=== PATIENT | male | born 1955 | race Caucasian/White ===

== ENCOUNTER → 2016-12-19 | Outpatient (CLI) | payer BC ==
--- NOTE | 2016-12-20 00:01 | MR ---
EXAMINATION TYPE: MR foot RT wo con DATE OF EXAM: 12/19/2016 COMPARISON: NONE HISTORY: Rt foot pain, swelling x 5 months after having a ladder fall on it Standard multiplanar, multisequence MRI departmental protocol Multiplanar, multisequence images of the right foot were acquired. Diffusion weighted imaging was per formed. FINDINGS: There is patchy abnormal increased signal on the T2 images in the distal first metatarsal. I see no definite fracture line. There is minimal increased signal in the base of the proximal phalan x of the big toe. There is subtle increased signal at the head of the second and third metatarsals on the dorsal aspect consistent with minimal bone bruise. The bones of the midfoot and hindfoot appear intact. The plantar fascia appears normal. There is no pathologic fluid collection. IMPRESSION: Abnormal signal in the distal first metatarsal consistent with a bone bruise. No fracture line seen. There is evidence for minimal bone bruise in the base of the first proximal phalanx as well. Minimal bone bruise seen on the dorsal aspect of the second and third metatarsal heads.
== END | disposition home or self-care (01) ==
LOC: RADMRIMAIN 21:07
PROVIDERS: ATTEND Family Medicine
DX: S90.31XA Contusion of right foot, initial encounter (principal); R93.7 Abnormal findings on diagnostic imaging of other parts of musculoskeletal system

== ENCOUNTER 2018-01-09 09:41 | Day surgery (SDC) | payer BC ==
[2018-01-06 15:22] VITALS: BMI 24.3
[~2018-01-09 09:41] MED LIST: LACTATED RINGERS 1,000 ML IV SCH
[2018-01-09 10:20] VITALS: RESP 16; TEMP 98.2
[2018-01-09] MEDS ORDERED: LIDOCAINE 1% INJ 10MG/ML (20 ML MDV) ONE (10:39)
[2018-01-09] MEDS ORDERED: PROPOFOL 10 MG/ML 20 ML VIAL IV ONE (10:39)
--- NOTE | 2018-01-09 10:44 | P.GSHP ---
History of Present Illness H&P Date: 01/09/18 Chief Complaint: GI bleed this a 62-year-old male who's had episodes of GI bleed. He presents today for colonoscopy. Past Medical History Past Medical History: Hyperlipidemia Additional Past Medical History / Comment(s): HX HIATAL HERNIA- REPAIR 02/2014 History of Any Multi-Drug Resistant Organisms: None Reported Past Surgical History: Hernia Repair, Tonsillectomy Additional Past Surgical History / Comment(s): BUZZ FUNDOPLASTY 02/2014, COLONOSCOPY 2014. DEJUAN. ING. HERNIA WITH MESH 2013 Past Anesthesia/Blood Transfusion Reactions: No Reported Reaction Smoking Status: Former smoker - Past Family History Father Family Medical History: Cancer Medications and Allergies Home Medications Medication Instructions Recorded Confirmed Type Simvastatin [Zocor] 20 mg PO MOWEFR 10/13/14 01/09/18 History Allergies Allergy/AdvReac Type Severity Reaction Status Date / Time No Known Allergies Allergy Verified 01/06/18 15:08 Surgical - Exam Vital Signs Temp Pulse Resp BP Pulse Ox 98.2 F 70 16 131/80 98 01/09/18 10:10 01/09/18 10:10 01/09/18 10:10 01/09/18 10:10 01/09/18 10:10 - General well developed, no distress - Eyes PERRL - ENT normal pinna - Neck no masses - Respiratory normal expansion - Cardiovascular Rhythm: regular - Abdomen Abdomen: soft, non tender Assessment and Plan Assessment: bleed. We'll perform colonoscopy.
--- NOTE | 2018-01-09 11:04 | P.OP ---
Date of Procedure: 01/09/18 Preoperative Diagnosis: GI bleed Postoperative Diagnosis: internal hemorrhoids Rectal polyp Procedure(s) Performed: colonoscopy Anesthesia: MAC Surgeon: Lencho Smith Pathology: other (rectal polyp) Condition: stable Disposition: PACU Description of Procedure: patient's placed on the endoscopy table in the lateral position. He received IV sedation. Digital rectal exam was performed which revealed internal hemorrhoids. The flexible colonoscope was then placed patient anus passed throughout the entire colon. The ileocecal valve was visualized. The cecum, ascending and transverse colon appeared normal. In the descending colon was a few scattered diverticula. The scope was then brought back the rectum and a small sessile polyp was biopsied. The scope was then retroflexed and internal hemorrhoids were noted. There is no active bleeding in the colon. The scope was withdrawn for patient.
[2018-01-09 11:37] VITALS: BP 114/67; PULSE 57
--- NOTE | 2018-01-15 19:10 | CDI ---
Outpatient Documentation Clarification Form Date: 01/15/18 CDS/Underground Production Foreperson Name: Emma Hanson Phone: If any questions, call Regine Valderrama Paid Search Analyst at [phone] Patient Name: Brandon Guthrie Admit Date: 01/09/18 Discharge Date: 01/09/18 ATTENTION: The [facility] Coding Staff appreciate your assistance in clarifying documentation. Please respond to the clarification below the line at the bottom and electronically sign. The [facility] Coding staff will review the response and follow-up if needed. Please note: Queries are made part of the Legal Health Record. If you have any questions, please contact the Paid Search Analyst. Dear Dr. Smith What is the cause of the GI bleeding? Our coding resources state that when rectal or GI bleeding is documented along with internal and/or external hemorrhoids, the physician must be queried to determine whether the bleeding is secondary to the hemorrhoids, or incidental. Thank you for your kind consideration. MTDD
== END 2018-01-09 12:10 | disposition home or self-care (01) ==
LOC: ORWHC2ENDO 09:41
PROVIDERS: ATTEND Surgery
DX: K92.2 Gastrointestinal hemorrhage, unspecified (principal); K64.8 Other hemorrhoids; K62.1 Rectal polyp; E78.5 Hyperlipidemia, unspecified; Z79.899 Other long term (current) drug therapy; Z87.891 Personal history of nicotine dependence
CPT/HCPCS: 88305; 45380; J2001; J2704

== ENCOUNTER 2023-11-19 10:54 | Day surgery (SDC) | payer BC, MEDICARE ==
--- NOTE | 2023-11-18 19:49 | P.HPOR ---
History of Present Illness H&P Date: 11/18/23 Subjective: This is a 67 year old male that presents today for initial evaluation regarding a right forearm injury that occurred on 11/14/23. A garage door fell onto his forearm and he had immediate pain and swelling at the time of the injury and went to [facility] where he was placed in a splint. He is right hand dominant. He states he initially had some numbness in the hand but it has resolved. Physical Examination: RUE: AIN/PIN/Radial/Ulnar/Median motor intact. Radial/Ulnar/Median SILT. 2+/4 Radial/Ulnar pulses palpated. 5/5 APB, 5/5 FDI. Able to make a full fist. Splint clean, dry and intact. Imaging: X-Rays of the right forearm 2V taken in office today demonstrate a distal third radial shaft fracture with 20 degrees of volar angulation, 10% radial displacement, 80% dorsal displacement. Impression: 1.) Right radial shaft fracture. Plan: Diagnosis and treatment options were discussed with the patient. We discussed the small tolerances for angulation and displacement with radial shaft fractures and that his angulation is outside the acceptable limits and I recommend surgical intervention. He is scheduled for a right radial shaft fracture ORIF. Risks and benefits of surgery including bleeding, infection, damage to surrounding tissue, need for further surgery, residual numbness were discussed and the patient wished to go forward with surgery. The patient was agreeable with this plan. -Antonio Vazquez DO Orthopedic Hand/Upper Extremity Surgeon Past Medical History Past Medical History: Hyperlipidemia Additional Past Medical History / Comment(s): HX HIATAL HERNIA- REPAIR 02/2014 History of Any Multi-Drug Resistant Organisms: None Reported Past Surgical History: Appendectomy, Hernia Repair, Tonsillectomy Additional Past Surgical History / Comment(s): BUZZ FUNDOPLASTY 02/2014, COLONOSCOPY 2014. DEJUAN. ING. HERNIA WITH MESH 2013 Past Anesthesia/Blood Transfusion Reactions: No Reported Reaction Smoking Status: Former smoker - Past Family History Father Family Medical History: Cancer Medications and Allergies Home Medications Medication Instructions Recorded Confirmed Type HYDROcodone/APAP 5-325MG [[place] 1 tab PO Q4HR PRN 11/17/23 11/17/23 History 5-325] Ibuprofen 600 mg PO Q6H PRN 05/20/24 05/20/24 History Allergies Allergy/AdvReac Type Severity Reaction Status Date / Time No Known Allergies Allergy Verified 11/17/23 15:18 Physical Examination Osteopathic Statement: *. No significant issues noted on an osteopathic structural exam other than those noted in the History and Physical/Consult.
[~2023-11-19 10:54] MED LIST changes: -LACTATED RINGERS 1,000 ML IV SCH; +droPERidol 5 MG/2 ML VIAL IVP ONE
[2023-11-19 11:38] VITALS: TEMP 97.2
[2023-11-19] MEDS: DEXAMETHASONE SOD PHOSPHATE 4 MG/ML 1 ML VIAL IV ONE (11:43)
[2023-11-19] MEDS: LIDOCAINE 1% (10MG/ML) FOR IV START INTRADERMA PRN (11:43)
[2023-11-19] MEDS: LACTATED RINGERS 1,000 ML IV SCH (11:43)
[2023-11-19] MEDS: ONDANSETRON 4 MG/2 ML VIAL IVP ONE (11:44)
[2023-11-19] MEDS: fentaNYL (PF) 50 MCG/ML 2 ML AMP IVP ONE (11:51)
[2023-11-19] MEDS: MIDAZOLAM 2 MG/2 ML VIAL IVP ONE (11:51)
--- NOTE | 2023-11-19 12:10 | P.ANPRN ---
Procedure Note - Anesthesia - Nerve Block Performed Right Supraclavicular Single Date of Procedure: 11/19/23 Procedure Start Time: 11:51 Procedure Stop Time: 11:59 Location of Patient: PreOp Indication: Acute Post-Operative Pain, Requested by Surgeon Specifically requested for management of pain by DrElian: Antonio Vazquez Sedation Type: Sedate with meaningful contact maintained Preparation: Sterile Prep Position: Supine Needle Types: Pajunk Needle Gauge: 21 Ultrasound used to visualize needle placement: Yes Ultrasound used to observe medication spread: Yes Injectate: 0.5% Ropivacaine (see comment for volume) (30) Blood Aspirated: No Pain Paresthesia on Injection Noted: No Resistance on Injection: Normal Image Stored and Saved: Yes Events: Uneventful and Well Tolerated
[2023-11-19] MEDS ORDERED: fentaNYL (PF) 50 MCG/ML 2 ML AMP ONE (12:45)
[2023-11-19] MEDS ORDERED: MIDAZOLAM 2 MG/2 ML VIAL ONE (12:45)
[2023-11-19] MEDS ORDERED: ROPIVACAINE 5 MG/ML 30 ML VIAL ONE (12:45)
[2023-11-19] MEDS ORDERED: DEXAMETHASONE SOD PHOSPHATE 4 MG/ML 1 ML VIAL ONE (12:45)
[2023-11-19] MEDS ORDERED: PROPOFOL 10 MG/ML 20 ML VIAL IV ONE (12:45)
[2023-11-19] MEDS ORDERED: KETAMINE HCL IN 0.9 % NACL 50 MG/5 ML SYRINGE ONE (12:45)
[2023-11-19] MEDS: HYDROmorphone 0.5 MG/0.5 ML SYRINGE IVP PRN (14:45)
[2023-11-19] MEDS: HYDROcodone/APAP 5-325MG 1 EACH TAB ONE (15:39)
[2023-11-19 16:25] VITALS: BP 154/80; PULSE 84; RESP 17
--- NOTE | 2023-11-19 20:24 | P.OP ---
Date of Procedure: 11/19/23 Preoperative Diagnosis: Right radial shaft fracture Postoperative Diagnosis: Right radial shaft fracture Procedure(s) Performed: Right radial shaft fracture ORIF Implants: [place] 3.5mm Variax 7 hole compression plate Anesthesia: CHENG regional Surgeon: Antonio Vazquez Traffic Sergeant #1: Cornell Guy Estimated Blood Loss (ml): 0 Pathology: none sent Condition: stable Disposition: PACU Description of Procedure: This is a 67 year old male who sustained a displaced right radius shaft fracture and presents today for open reduction internal fixation of their radial shaft fracture. Risks and benefits of surgery were discussed with the patient including bleeding, damage to surrounding tissue, infection, need for further surgery as well as risks of anesthesia including pulmonary embolism and even and the patient wished to proceed with surgical intervention. The patients was seen in the pre-operative area by myself. Consent and H&P were completed and updated. The correct extremity was marked in the pre-operative area by myself and all other questions were answered. Operative Narrative: The patient was brought to the operating room by the department of anesthesia. They remained on the portable stretcher and a rolling hand table was brought to the side of the operative extremity. Pre-operative time out was performed indicating the correct patient, procedure and laterality. All in the room agreed. Pre-operative antibiotics were given prior to skin incision. The patient was then drifted off to sleep by the department of anesthesia. A nonsterile tourniquet was then applied to the operative extremity and the right upper extremity was then prepped and draped in normal sterile fashion. The operative extremity was the exsanguinated with an esmarch bandage and the tourniquet was inflated to 250mmHg. A longitudinal incision centered over the FCR tendon was made with a 15-blade scalpel. Blunt dissection was taken down to the FCR tendon sheath using Bovie cautery for meticulous hemostasis. The FCR sheath was opened with tenotomy scissors. The floor of the FCR sheath was then incised with a 15-blade scalpel and the FPL tendon and muscle belly was swept bluntly in an ulnar direction to reveal the pronator quadratus. Pronator quadratus was sharply incised with a 15-blade scalpel along the radial border of the distal radius, coming across transversely parallel to the joint at the level of the watershed line, radial artery was identified and protected. Periosteal elevator was then used to elevate the pronator quadratus off the distal radius from a radial to ulnar fashion. Dissection was carried proximally at the interval between the brachioradialis and FCR tendon up to the level of the pronator teres insertion which was elevated off of the radial shaft. The fracture was identified and edges and fibrous tissue was debrided. Lobster claw clamps were used to reduced the fracture anatomically. A countersunk 3.5mm lag screw was inserted for primary reduction of the fracture. A 7 hole [place] 3.5mm compression radial shaft plate was then applied to the bone. bicortical fixation was achieved in the 3 proximal holes and 3 distal holes. Adventism of radial bow was achieved and confirmed on x-ray. The wound was then irrigated. Subcutaneous closure was performed with 4-0 monocryl followed by skin closure with 4-0 nylon suture. Sterile dressing consisting of adaptic, 4x4s, and a volar plaster splint was applied. Tourniquet was let down and the hand had immediate perfusion. The patient was then woken by the department of anesthesia and transferred to PACU in stable condition. Cornell BANKS was present for the case and assisted in major portions of the operation and hardware placement. Antonio Vazquez D.O. Orthopedic Hand/Upper Extremity Surgeon
== END 2023-11-19 16:08 | disposition home or self-care (01) ==
LOC: OR 10:54
PROVIDERS: ATTEND Orthopaedic Surgery Hand Surgery
DX: S52.301A Unspecified fracture of shaft of right radius, initial encounter for closed fracture (principal); G89.18 Other acute postprocedural pain; E78.5 Hyperlipidemia, unspecified; Z90.49 Acquired absence of other specified parts of digestive tract; Z90.89 Acquired absence of other organs; Z87.891 Personal history of nicotine dependence; Z98.890 Other specified postprocedural states; Z79.899 Other long term (current) drug therapy; X58.XXXA Exposure to other specified factors, initial encounter
CPT/HCPCS: 64415; 25607; C1713; J2250; J1100; J0690; J2405; J3010; J2795; J2704; J1170